=== PATIENT | female | born 1990 | race Caucasian/White ===

== ENCOUNTER 2016-12-06 22:33 | Emergency (ER) | payer SELFPAY ==
[~2016-12-06] VITALS: Ht 167.6 cm; Wt 53.6 kg
[2016-12-06 22:42] VITALS: Ht 167.6 cm; Wt 53.6 kg
--- NOTE | 2016-12-07 00:10 | RADRPT ---
PROCEDURE: Left ankle. CLINICAL INDICATION: Pain. TECHNIQUE: Three views including AP, lateral and oblique views of the left ankle were performed. COMPARISON: None. FINDINGS: There is no fracture, dislocation or bone destruction. The ankle mortise is within normal limits. Bone mineralization is within normal limits. There is no radiopaque foreign body or abnormal calcif ication. IMPRESSION: No evidence of fracture. .Delmar Connelly MD, Date Time Electronically viewed and signed by .Delmar Connelly MD, MD on 12/07/2016 00:09 .T/
--- NOTE | 2016-12-07 00:16 | RADRPT ---
PROCEDURE: XR left foot. CLINICAL INDICATION: Post traumatic left foot pain TECHNIQUE: AP, lateral and oblique views of the left foot were obtained. COMPARISON: None. FINDINGS: Mineralization is within normal limits. No fracture or osseous lesion is identified. There is no e vidence for dislocation. The metatarsophalangeal, interphalangeal, and mid tarsal joint spaces are preserved. The soft tissues are unremarkable. There is no evidence for a radiopaque foreign body. IMPRESSION: Unremarkable left foot series. RPTAT:HJJR Physician Dwight Date Time Electronically viewed and signed by Physician Dwight on 12/07/2016 00:15 JR/
--- NOTE | 2016-12-07 00:17 | RADRPT ---
PROCEDURE: XR Tibia and Fibula. CLINICAL INDICATION: Trauma TECHNIQUE: AP and cross-table lateral views of the left tibia and fibula were obtained. COMPARISON: Left ankle series 12/06/2016 FINDINGS: Acute nondisplaced fracture involving the anterior aspect of the mid fibula shaft best seen on the c ross-table lateral projections. No fracture or osseous lesion is identified. Mild soft tissue swelli ng is present. RPTAT:HJJR IMPRESSION: Acute, closed, nondisplaced fracture involving the anterior aspect of the mid left fibula shaft. Physician Dwight Date Time Electronically viewed and signed by Physician Dwight on 12/07/2016 00:16 /
--- NOTE | 2016-12-07 00:22 | ERA ---
ER Documentation Chief Complaint Date/Time DATE: 12/07/16 TIME: 00:20 Chief Complaint left lower leg pain. swelling sustained while playing soccer HPI 26-year-old female presenting one hour status post injury to left lower extremity. Patient was playing soccer. Impact to the lateral aspect of her fibula. Patient states that her ankle hurts as well. Hurts to walk because she feels pain in her foot. Pain radiates upwards. Denies trauma to any other areas of the body. Feels like she heard/felt a snap. Has not taken any medications to relieve the symptoms. Patient has no other complaints and describes no other associated manifestations. Nursing notes have been reviewed and are consistent with history given. ROS All systems reviewed and are negative except as per history of present illness. Medications Home Meds Active Scripts Hydrocodone/Acetaminophen ([place] 5-325 Tablet) 1 Each Tablet, 1 TAB PO Q6H Y for PAIN, #20 TAB Prov:ANSHU DICKENS PA-C 12/07/16 Ondansetron (Ondansetron Odt) 4 Mg Tab.rapdis, 4 MG PO Q6H Y for NAUSEA AND/OR VOMITING, #20 TAB Prov:ANSHU DICKENS PA-C 12/07/16 Allergies Allergies: Coded Allergies: No Known Allergy (Unverified , 12/06/16) PMhx/Soc History of Surgery: No Anesthesia Reaction: No Hx Neurological Disorder: No Hx Respiratory Disorders: No Hx Cardiac Disorders: No Hx Psychiatric Problems: No Hx Miscellaneous Medical Probl: No Hx Alcohol Use: No Hx Substance Use: No Hx Tobacco Use: No Smoking Status: Never smoker Physical Exam Vitals Vital Signs Date Time Temp Pulse Resp B/P Pulse Ox O2 Delivery O2 Flow Rate FiO2 12/06/16 22:42 98.2 57 20 128/80 98 Physical Exam Const: Well-appearing healthy 26-year-old female no acute distress Head: Atraumatic Eyes: Normal Conjunctiva ENT: Normal External Ears, Nose and Mouth. Neck: Full range of motion..~ No meningismus. Resp: Clear to auscultation bilaterally Cardio: Regular rate and rhythm, no murmurs Abd: Soft, non tender, non distended. Normal bowel sounds Skin: No petechiae or rashes Back: No midline or flank tenderness Ext: Tenderness palpation of the left lower extremity. Diffuse tenderness. No specific location. Range of motion decreased secondary to pain. Neurovascularly intact. Cap refill less than 2 seconds. Pulses 2+ bilaterally Neur: Awake and alert Psych: Normal Mood and Affect Procedures/MDM Otherwise healthy 26-year-old female presenting one hour status post trauma to the left lower extremity. Hit from lateral side. Refused pain medications in the emergency department. X-ray was obtained, read by the radiologist, given the following impression: Acute, closed, nondisplaced fracture involving the anterior aspect of the mid left fibula shaft. Patient will will be equipped with a short leg splint and crutches. Neurovascularly intact after application of splint. Patient has been recommended to follow-up with orthopedics. List of orthopedic specialists has been handed to her. Pain medication prescribed with [facility]. I have spoke with the patient regarding their condition and future management. They have verbally responded that they understand their status and treatment plan. The patients vitals are stable, and their current condition is appropriate for discharge. The patient will be given discharge instructions with return precautions. Departure Diagnosis: Primary Impression: Fracture, fibula Qualified Code: S82.492A - Other closed fracture of shaft of left fibula, initial encounter Condition: Stable Additional Instructions: Follow-up with orthopedics in the next 1-3 days. A list has been given to you. Return the the emergency department immediately if symptoms worsen or change. If you have any questions regarding medications, ask your pharmacist or us before you leave. If any adverse reactions occur while taking your medications, discontinue the treatment and return to the emergency department immediately. Take your medications as directed, and complete the entire course of treatment. ANSHU DICKENS PA-C Dec 07, 2016 00:22
[2016-12-07] MEDS ORDERED: HYDR-906 PO (00:33)
[2016-12-07] MEDS ORDERED: ONDA4TAB14 PO (00:33)
[2016-12-07] MEDS ORDERED: ONDANSETRON (ODT) 4 MG TAB ODT STA (00:43)
[2016-12-07] MEDS ORDERED: HYDROCODONE/APAP (10/325) TAB PO ONE (01:00)
== END 2016-12-07 01:15 | disposition home or self-care (01) ==
LOC: FTE 22:33
DX: S82.492A Other fracture of shaft of left fibula, initial encounter for closed fracture (principal); X58.XXXA Exposure to other specified factors, initial encounter; Y92.9 Unspecified place or not applicable
CPT/HCPCS: 73590; 73610